=== PATIENT | male | born 1990 | race Caucasian/White ===

== ENCOUNTER 2017-06-20 11:30 | Emergency (ER) | payer OTHER, MEDICAID ==
[~2017-06-20] VITALS: Ht 175.3 cm; Wt 95.3 kg
[~2017-06-20 11:30] MED LIST: ACETAMINOPHEN-1 EAC1 PO; ALEVE220 MG PO; AMOXICILLIN 50500 MG PO; AMOXICILLIN500 M1 PO; BACTRIM; BACTRIM DS TAB1 EACH PO; CENTANY30 GM TP; CLEOCIN HCL150 MG PO; HYDROCODONE-AP1 EAC6 PO; HYDROCODONE-APA1 TA1 PO; IBUPROFEN 600600 M1 PO; IBUPROFEN 800800 M1 PO; IBUPROFEN 800800 MG PO; KEFLEX500 MG; LIDOCAINE VISC100 M1 MM; LIDOCAINE VISC100 M1 SWISH&SPIT; NAPROSYN500 M1 PO; NOHOMEMEDICATIONS; NORCO 5-325 TA1 EACH PO; OMEPRAZOLE40 MG PO; PENICILLIN V P500 MG PO; PENICILLIN VK500 M1 PO; PENICILLIN VK500 MG PO; PERCOCET 5-3251 EACH PO; PHENERGAN 25 MG25 M1 PO; PREDNISONE 20 M20 M1 PO; PROZAC 20 MG20 M1 PO; SEE COMMENTS; TRAMADOL 50 MG50 MG PO; VISTARIL 25 MG25 M1 PO; XANAX 0.25 MG0.25 MG PO; ZANTAC 150MG T150 M1 PO; ZOFRAN ODT4 MG PO; ZOFRAN4 MG PO; ZPAK PO
[2017-06-20] MEDS ORDERED: NOHOMEMEDICATIONS (12:20)
[2017-06-20 13:09] LABS: HEMATOCRIT 45.6 % (42.0-52.0); HEMOGLOBIN 15.6 gm/dL (14.0-18.0); MCH 29.4 pg (26.0-34.0); MCHC 34.3 g/dL (28.0-37.0); MCV 85.8 fL (80.0-100.0); MPV 9.8 fl. (7.2-11.1); NUCLEATED RBCS 0 /100WBC; PLATELET COUNT* 178 thou/uL (150-400); RBC 5.31 mil/uL (4.50-6.00); RDW-CV 13.4 % (10.5-14.5); WBC 10.8 thou/uL (4.0-11.0)
[2017-06-20 13:22] LABS: CALCIUM 9.1 mg/dL (8.5-10.1); CREATININE 0.9 mg/dL (0.6-1.3); POTASSIUM 3.8 mmol/L (3.5-5.1)
[2017-06-20 13:26] LABS: TOTAL BILIRUBIN 0.7 mg/dL (<0.1-1.0); TOTAL PROTEIN 7.1 g/dL (6.4-8.2)
[2017-06-20 13:44] LABS: ABSOLUTE MONOCYTES 0.8 thou/uL (0.0-1.2); ABSOLUTE NEUTROPHILS 9.1 thou/uL (1.6-8.1); ATYPICAL LYMPHS 4 %; PLATELET ESTIMATE ADEQUATE
[2017-06-20] MEDS ORDERED: ZOFRAN ODT4 MG PO (13:46)
[2017-06-20 13:50] LABS: URINE BILIRUBIN NEGATIVE (Negative); URINE BLOOD NEGATIVE (Negative); URINE CLARITY CLEAR; URINE COLOR YELLOW; URINE GLUCOSE-RANDOM NEGATIVE (Negative); URINE KETONES TRACE (Negative); URINE LEUKOCYTES-REFLEX NEGATIVE (Negative); URINE NITRITE-REFLEX NEGATIVE (Negative); URINE PROTEIN 1+ (Negative); URINE SPECIFIC GRAVITY >= 1.030 (1.005-1.030); URINE UROBILINOGEN 0.2 E.U./dl (0.2-1.0)
[2017-06-20 13:58] LABS: AMP/METHAMP Negative (Negative); BARBITURATES Negative (Negative); BENZODIAZEPINES Negative (Negative); COCAINE Negative (Negative); METHADONE Negative (Negative); OPIATES Negative (Negative); PCP Negative (Negative); THC POSITIVE (Negative)
[2017-06-20 14:00] VITALS: BP 121/87
== END 2017-06-20 14:01 | disposition home or self-care (01) ==
LOC: M.ERS 11:30
PROVIDERS: Physician Assistant
DX: R19.7 Diarrhea, unspecified (principal); R11.2 Nausea with vomiting, unspecified; F17.210 Nicotine dependence, cigarettes, uncomplicated

== ENCOUNTER 2018-01-23 16:33 | Emergency (ER) | payer OTHER ==
[~2018-01-23] VITALS: Ht 177.8 cm; Wt 97.5 kg
[2018-01-23 16:39] VITALS: BP 150/91
[2018-01-23] MEDS ORDERED: KEFLEX500 M1 PO (16:51)
[2018-01-23] MEDS ORDERED: NYSTATIN 100,0015 G1 TOP (16:51)
[2018-01-23] MEDS ORDERED: RASH RELIEF ANT56 GM TOP (16:53)
== END 2018-01-23 17:10 | disposition home or self-care (01) ==
LOC: M.ERS 16:33
DX: R21 Rash and other nonspecific skin eruption (principal); F17.210 Nicotine dependence, cigarettes, uncomplicated

== ENCOUNTER 2018-02-23 07:40 | Emergency (ER) | payer OTHER ==
[~2018-02-23] VITALS: Ht 175.3 cm; Wt 102.1 kg
[~2018-02-23 07:40] MED LIST changes: +KEFLEX500 M1 PO; +NYSTATIN 100,0015 G1 TOP; +RASH RELIEF ANT56 GM TOP
[2018-02-23 07:50] VITALS: BP 97/76
[2018-02-23] MEDS ORDERED: HYDROCODONE-AP1 EAC6 PO (07:54)
== END 2018-02-23 08:31 | disposition home or self-care (01) ==
LOC: M.ERS 07:40
DX: M25.561 Pain in right knee (principal); F17.210 Nicotine dependence, cigarettes, uncomplicated